=== PATIENT | female | born 1995 | race Caucasian/White ===

== ENCOUNTER 2017-09-01 14:25 | Emergency (ER) | payer MEDICAID ==
[~2017-09-01] VITALS: Ht 162.6 cm; Wt 74.0 kg
[2017-09-01 14:31] VITALS: BP 125/69
== END 2017-09-01 18:26 | disposition home or self-care (01) ==
LOC: ER 17:25
DX: L03.032 Cellulitis of left toe (principal)
CPT/HCPCS: 99283